=== PATIENT | female | born 1960 | race Caucasian/White ===

== ENCOUNTER 2017-02-02 15:47 | Emergency (ER) | payer MEDICAID ==
[2017-02-02 16:31] LABS: microscopic required? NO
[2017-02-02 16:41] LABS: UA SPECIFIC GRAVITY 1.015 (1.005-1.035); urine erythrocyte NEGATIVE (NEGATIVE)
[2017-02-02 16:47] LABS: BASOPHIL % 0.5 % (0-2); PLATELET COUNT 143 x10^3mcL (130-400)
[2017-02-02 16:49] LABS: CALCIUM 8.7 mg/dL (8.5-10.1); CARBON DIOXIDE 27.6 mmol/L (21-32); CHLORIDE SERUM 105 mmol/L (98-107); CREATININE SERUM 0.7 mg/dL (0.6-1.0); GFR1 > 60 mL/min; GLUCOSE SERUM 104 mg/dL (74-106); POTASSIUM SERUM 3.6 mmol/L (3.5-5.1); SODIUM SERUM 142 mmol/L (136-145)
[2017-02-02 16:51] LABS: RED CELL DISTRIBUTION WIDTH 14.6 % (11.5-14.5)
[2017-02-02 16:53] LABS: ALBUMIN 3.5 g/dL (3.4-5.0); ALKALINE PHOSPHATASE 90 U/L (46-116); ALT/SGPT 36 U/L (14-59); AST/SGOT 36 U/L (15-37); BILIRUBIN TOTAL 0.2 mg/dL (0.20-1.00); CHOLESTEROL 162 mg/dL (<200); MAGNESIUM 1.9 mg/dL (1.8-2.4)
[2017-02-02 16:55] LABS: HDL CHOLESTEROL 34 mg/dL (40-60)
[2017-02-02 19:04] VITALS: BP 145/87
== END 2017-02-02 19:04 | disposition home or self-care (01) ==
LOC: ED 15:47
PROVIDERS: Emergency Medicine
DX: R42 Dizziness and giddiness (principal); R51 Headache; E03.9 Hypothyroidism, unspecified; I10 Essential (primary) hypertension; M79.1 Myalgia
CPT/HCPCS: 83880; J1885; J2550; J7030; J8597